=== PATIENT | male | born 1985 | race Asian ===

== ENCOUNTER 2021-02-06 07:15 | Outpatient (CLI) | payer OTHER | END 2021-02-06 23:59 | disposition home or self-care (01) | LOC: LAB.S 07:15 | PROVIDERS: ATTEND Emergency Medicine | DX: J06.9 Acute upper respiratory infection, unspecified (principal); R09.81 Nasal congestion; Z20.822 Contact with and (suspected) exposure to COVID-19 | CPT/HCPCS: 87070 ==